=== PATIENT | female | born 1955 | race Two or more races ===

== ENCOUNTER 2017-03-19 10:00 | Emergency (ER) | payer OTHER ==
[~2017-03-19] VITALS: Ht 165.1 cm; Wt 64.5 kg
[2017-03-19 10:03] VITALS: Ht 165.1 cm; Wt 64.5 kg
[2017-03-19] MEDS ORDERED: IBUP-1542 PO (10:59)
--- NOTE | 2017-03-19 11:03 | ERD ---
ER Documentation Chief Complaint Date/Time DATE: 03/19/17 TIME: 10:59 Chief Complaint RT KNEE PAIN S/P SLIP AND FALL YESTERDAY HPI Patient is a 61-year-old female who presents to the emergency department with right knee pain status post slip and fall injury yesterday. Patient states that she was pushing a grocery cart at the grocery store when she slipped due to some yogurt on the ground. Patient reports falling on her right knee to catch her fall. Patient denies any dizziness or feelings of syncope prior to injury. Patient denies any head pain, neck pain, back pain, nausea, vomiting or loss of consciousness. Patient states she is able to ambulate however she does have a limp. Patient reports icing the affected extremity. Patient states that Advil does help reduce the pain. Patient denies any previous injuries to the affected extremity. ROS All systems reviewed and are negative except as per history of present illness. Medications Home Meds Active Scripts Ibuprofen* (Motrin*) 600 Mg Tab, 600 MG PO Q6, #30 TAB Prov:COLIN AGUILERA PA-C 03/19/17 Allergies Allergies: Coded Allergies: No Known Allergy (Unverified , 11/15/14) PMhx/Soc Medical and Surgical Hx: pt denies Medical Hx, pt denies Surgical Hx Hx Alcohol Use: No Hx Substance Use: No Hx Tobacco Use: No Smoking Status: Never smoker FmHx Family History: No diabetes Physical Exam Vitals Vital Signs Date Time Temp Pulse Resp B/P Pulse Ox O2 Delivery O2 Flow Rate FiO2 03/19/17 10:03 97.5 81 18 171/88 98 Physical Exam GENERAL: Well-developed, well-nourished female. Appears in no acute distress. HEAD: Normocephalic, atraumatic. EYES: Pupils are equally reactive bilaterally. EOMs grossly intact. No conjunctival erythema. ENT: Moist mucous membranes. No uvula deviation. No kissing tonsils. NECK: Supple. No meningismus. Normal range of motion of the neck. LUNG: Clear to auscultation bilaterally. No rhonchi, wheezing, rales or coarse breath sounds. HEART: Regular rate and rhythm. No murmurs, rubs or gallops. EXTREMITIES: Equal pulses bilaterally. No peripheral clubbing, cyanosis or edema. No unilateral leg swelling. NEUROLOGIC: Alert and oriented. Moving all four extremities without any difficulty. Normal speech. Steady gait. SKIN: Normal color. Warm and dry. No rashes or lesions. RIGHT KNEE: No obvious deformity. Swelling noted to the anterior knee. Skin intact. Increased range of motion of the knee secondary swelling and pain.. Tender to palpation of the patella. Nontender palpation of the tib-fib, femur. ROM motion of the ankle. No valgus/varus instability. Sensation intact to light touch. Neurovascularly intact. (Able to plantarflex, dorsiflex, rachel foot , invert foot, raise big toe.) 2+ DP and DT pulses. Procedures/MDM ED COURSE: The patient was stable throughout ED course. I kept the patient and/or family informed of laboratory and diagnostic imaging results throughout the ED course. DIAGNOSTIC IMAGING: Read by radiologist. DIAGNOSTIC IMAGING REPORT Patient: CLEMENT PORTER : 1955 Age: 61 Sex: F MR #: [id number] DOS: 03/19/17 1031 Ordering MD: COLIN AGUILERA PA-C Location: [facility] Room/Bed: PROCEDURE: Right knee series. CLINICAL INDICATION: Right knee pain after fall TECHNIQUE: Three views of the right knee are available for review. COMPARISON: None available FINDINGS: There is normal mineralization and alignment of the bones of the right knee. No acute fracture or dislocation is identified. No joint effusion is seen. There is mild infrapatellar soft tissue swelling.. IMPRESSION: 1. Mild infrapatellar soft tissue swelling likely related to bruising or hematoma. 2. No evidence of fracture or dislocation. RPTAT: KK .Meet Fuentes MD, MD Date Time Electronically viewed and signed by .Meet Fuentes MD, MD on 2016 12:25 .B/ CC: COLIN AGUILERA PA-C MEDICATIONS GIVEN: She was offered analgesic pain relief however she declined. MEDICAL DECISION MAKING: Patient is a 61-year-old female who presents with right knee pain status post slip and fall injury while at the grocery store yesterday. Patient states the pain is localized to her right knee. vital signs were reviewed. Patient was afebrile. X-ray imaging showed Mild infrapatellar soft tissue swelling likely related to bruising or hematoma. No evidence of fracture or dislocation. Given these findings, the patient's presentation is most consistent with knee contusion. I have a much lower clinical concern for femur fracture, patella fracture, tibial plateau fracture, septic joint, gout, popliteal cyst, prepatellar bursitis, patellofemoral syndrome, patellar tendinitis, osteomyelitis, DVT or compartment syndrome. At this time, unable to rule out any meniscus and knee ligament injuries. PRESCRIPTIONS: Ibuprofen DISCHARGE: At this time, patient is stable for discharge and outpatient management. RICE therapy and ROM exercises were advised to avoid stiffness. I have instructed the patient to follow-up with his/her primary care physician in 1-2 days. I have discussed with the patient the possibility of needing to see an student specialist for further workup and imaging if the pain persists. I have instructed the patient to promptly return to the ER for any new or worsening symptoms including increased pain, swelling, redness, warmth or fever. The patient and/or family expressed understanding of and agreement with this plan. All questions were answered. Home care instructions were provided. Departure Diagnosis: Primary Impression: Right knee pain Chronicity: acute Qualified Code: M25.561 - Acute pain of right knee Condition: Stable Patient Instructions: Knee Pain, Uncertain Cause Referrals: [facility] Hours: Thu-Thu 9:00 AM - 5:00 PM Additional Instructions: Call your primary care doctor TOMORROW for an appointment during the next 1-2 days.See the doctor sooner or return here if your condition worsens before your appointment time. COLIN AGUILERA PA-C March 19, 2017 11:03
--- NOTE | 2017-03-19 12:25 | RADRPT ---
PROCEDURE: Right knee series. CLINICAL INDICATION: Right knee pain after fall TECHNIQUE: Three views of the right knee are available for review. COMPARISON: None available FINDINGS: There is normal mineralization and alignment of the bones of the right knee. No acute fracture or d islocation is identified. No joint effusion is seen. There is mild infrapatellar soft tissue swell ing.. IMPRESSION: 1. Mild infrapatellar soft tissue swelling likely related to bruising or hematoma. 2. No evidence of fracture or dislocation. RPTAT: KK .Meet Fuentes MD, MD Date Time Electronically viewed and signed by .Meet Fuentes MD, on 03/19/2017 12:25 .B/
== END 2017-03-19 12:55 | disposition home or self-care (01) ==
LOC: FTE 10:00
DX: M25.561 Pain in right knee (principal)
CPT/HCPCS: 73562; Z7502